=== PATIENT | male | born 1965 | race Caucasian/White ===

== ENCOUNTER 2022-03-03 08:14 | Outpatient (CLI) | payer BC ==
[2022-03-03] MEDS ORDERED: Iopamidol 370 76% 100 ML VIAL ONE (12:52)
== END 2022-03-03 08:15 | disposition home or self-care (01) ==
LOC: CT 08:14
PROVIDERS: ATTEND Internal Medicine Gastroenterology
DX: K52.9 Noninfective gastroenteritis and colitis, unspecified (principal); K56.609 Unspecified intestinal obstruction, unspecified as to partial versus complete obstruction; F10.10 Alcohol abuse, uncomplicated; K57.30 Diverticulosis of large intestine without perforation or abscess without bleeding; M87.9 Osteonecrosis, unspecified
CPT/HCPCS: 74178; 82565; Q9967